=== PATIENT | male | born 1990 | race Caucasian/White ===

== ENCOUNTER 2018-12-15 08:36 | Emergency (ER) | payer OTHER ==
[~2018-12-15] VITALS: Ht 160 cm; Wt 77.1 kg
[2018-12-15 08:41] VITALS: BP 128/75; Ht 160 cm; Wt 77.1 kg
== END 2018-12-15 10:25 | disposition home or self-care (01) ==
LOC: ED 08:36
DX: H11.33 Conjunctival hemorrhage, bilateral (principal); F10.99 Alcohol use, unspecified with unspecified alcohol-induced disorder; R05 Cough
CPT/HCPCS: Q0092

== ENCOUNTER 2019-01-12 09:56 | Emergency (ER) | payer OTHER ==
[~2019-01-12] VITALS: Ht 152.4 cm; Wt 83.5 kg
[2019-01-12 10:00] VITALS: BP 129/76; Ht 152.4 cm; Wt 83.5 kg
== END 2019-01-12 11:31 | disposition home or self-care (01) ==
LOC: ED 09:56
DX: L76.22 Postprocedural hemorrhage of skin and subcutaneous tissue following other procedure (principal)